=== PATIENT | female | born 1960 | race Caucasian/White ===

== ENCOUNTER → 2016-06-14 | Outpatient (CLI) | payer OTHER ==
[~2016-06-14] MED LIST: BUPR150T11 PO; CHOL10003 PO; ESTR1TAB15 PO; FLUT16SP NS; LEVO88TA2 PO; LORA10TA68 PO
--- NOTE | 2016-06-14 14:53 | RAD ---
Lateral lumbar spine-3 views, 06/14/2016: History: Spondylolisthesis Supine, upright flexion and upright extension views of the lumbar spine were obtained in the lateral projection as requested. The lumbar vertebral heights are well-maintained. There are mild scattered marginal spurs. There are sclerotic changes involving the facet joints in the lower lumbar spine. There is a mild spondylolisthesis consisting of a proximal a 4-5 mm of anterior subluxation of L4 relative to L5 in the supine position. A similar appearance is present in the upright view with extension. With upright flexion the spondylolisthesis increases slightly, measuring 6 to 7 mm. This limited exam is otherwise unremarkable. IMPRESSION: Mild spondylolisthesis at L4-5 as described above.
== END | disposition home or self-care (01) ==
LOC: RAD 14:13
PROVIDERS: ATTEND Neurological Surgery
DX: M43.16 Spondylolisthesis, lumbar region (principal)
CPT/HCPCS: 72100

== ENCOUNTER 2016-09-02 08:30 | Inpatient (IN) | payer OTHER ==
[~2016-09-02] VITALS: Ht 160 cm; Wt 68.0 kg
[2016-09-19] MEDS ORDERED: MELA3TAB2 PO (15:22)
[2016-09-19] MEDS ORDERED: IBUP-1027 PO (15:22)
[2016-09-19] MEDS ORDERED: ALPR0.254 PO (15:22)
[2016-09-19] MEDS ORDERED: ACET650T89 PO (15:22)
[2016-09-30] VITALS (10 sets, daily range): BP systolic 137–171; BP diastolic 84–104
[2016-09-30] MEDS ORDERED: BACITRACIN 50,000 UNIT in IV NORMAL SALINE 1000ML BAG 1,000 ML IRR ONE (06:00)
[2016-09-30] MEDS ORDERED: HYDROmorphone 2 MG/ML VIAL IV PRN ×2 (07:00→18:00)
[2016-09-30] MEDS ORDERED: ONDANSETRON PF 4 MG/2 ML VIAL. IV PRN ×2 (07:00→16:30)
[2016-09-30] MEDS ORDERED: LIDOCAINE 1% 1 ML SYRINGE. ID PRN (07:00)
[2016-09-30] MEDS ORDERED: MORPHINE SULFATE 2 MG/ML DISP.SYRIN. IV PRN (07:00)
[2016-09-30] MEDS ORDERED: IV RINGERS,LACTATED 1000ML 1,000 ML IV SCH (07:00)
[2016-09-30] MEDS ORDERED: PROCHLORPERAZINE 10 MG/2 ML VIAL. IV PRN (07:00)
[2016-09-30] MEDS ORDERED: fentaNYL PF VIAL 100 MCG/2 ML VIAL IV PRN (07:00)
[2016-09-30] MEDS ORDERED: BUPIVAC MPF-EPI 0.5%-1:200000 30 ML VIAL. ONE (08:10)
[2016-09-30] MEDS ORDERED: KETOROLAC 60 MG/2 ML INJ FOR OR. ONE (08:10)
[2016-09-30] MEDS ORDERED: GELATIN SPONGE SIZE 100. ONE (08:10)
[2016-09-30] MEDS ORDERED: THROMBIN TOPICAL 20,000 UNIT SPRAY.SYRN KIT TP ONE (08:10)
--- NOTE | 2016-09-30 08:38 | HP ---
ADMIT DATE: 09/30/2016 Keith Terrazas APRN dictating for Dr. Mars Ayoub. HISTORY OF PRESENT ILLNESS: The patient is a pleasant 55-year-old who has low back pain and burning which radiates into her right buttock and inguinal region and right leg. Over the last year, she has noted some discomfort which has been gradually increasing. The left side, which involves her left buttock, has a burning pain and also a pain in the left inguinal region and the left posterior lateral thigh. The problem started after heavy lifting. She states she is having more mild pain today after having been in bed a lot recently. Activities such as lifting or walking any distance exacerbate her pain. Rest helps. She takes extra strength Tylenol and ibuprofen. She has had epidural steroid injections x 3 as well as physical therapy, which has been giving her no lasting relief. Importantly, she reports an allergy specifically to titanium. PAST MEDICAL HISTORY: Headaches/migraines, thyroid disease, ulcers. PAST SURGICAL HISTORY: Hysterectomy, cholecystectomy, left meniscus repair, breast biopsy, carpal tunnel surgery. FAMILY HISTORY: Cancer. SOCIAL HISTORY: Retired welder helper. . Exercises daily. Quit smoking greater than 10 years ago. Drinks alcohol one to two times per month. ALLERGIES: TO HYDROCODONE, ERYTHROMYCIN, PREDNISONE, SULFA DRUGS, MACROBID, NICKEL, TITANIUM, COBALT, LATEX, CHLORHEXIDINE, STATINS, ADHESIVE BANDAGES AND BALSAM OF ERICK. CURRENT MEDICATIONS: Buproban, estradiol, Flonase, Xanax, Synthroid, acetaminophen and ibuprofen. REVIEW OF SYSTEMS: A 12-point review of systems was obtained and is noncontributory except for that mentioned above. PHYSICAL EXAMINATION: NEUROSURGERY EXAMINATION: GENERAL APPEARANCE: Alert, pleasant, in no acute distress. HEAD: Normocephalic and atraumatic. SKIN: Warm and dry. MUSCULOSKELETAL: Lumbar paraspinal muscle bulk is normal, restricted range of motion of lumbar spine, [id number] tenderness of lower lumbar spine with palpation, normal range of motion of the lower extremities bilaterally. EXTREMITIES: No clubbing, cyanosis or edema. NEUROLOGIC: Alert and oriented x 3, normal recent and remote memory, strength 5/5 in bilateral lower extremities, sensory was intact to light touch in the lower extremities bilaterally except for decrease in the anterolateral right leg, reflexes were trace and symmetric in bilateral lower extremities, positive straight leg with raising, back and buttock pain bilaterally, normal gait. IMAGING: Reviewed. I reviewed a lumbar myelogram and post-myelogram CT scan. On that study, there was a grade 1 anterolisthesis of L4-L5, which is about a 6 mm in extension and increases to 8 mm in flexion. There is severe bilateral foraminal stenosis related to the anterolisthesis, disk bulging and disk space narrowing along with facet arthropathy. There is associated bilateral L5 nerve root swelling. Additionally, there is prominent synovial cyst which is protruding into the canal from the left side at this level which is compressing and displacing the L5 nerve root on the left as well as the S1 root within the thecal sac. This measures about 1.3 cm in greatest diameter. ASSESSMENT: 1. Spondylolisthesis, lumbar region. 2. Radiculopathy, lumbar region. 3. Spinal stenosis, lumbar region. 4. Other bursal cyst, unspecified site. PLAN: She has spondylolisthesis of L4-L5 and L5 nerve root swelling bilaterally. There is moderately large synovial cyst on the left with compression of the left L5 nerve root as well as left S1 root. She has positive straight leg raising as well as numbness in her right anterolateral leg. At this point, I feel she should have a bilateral micro decompressive surgery to decompress nerve root on the right side as well as removal of synovial cyst on the left. She has a specific allergy to titanium which is rare. I would combine her surgery with ____ fusion without instrumentation. I discussed all this with her including the risks and the expected postoperative course. She understands. She would like to proceed. MARS AYOUB MD DR: ELISE/yasemin JOB#: [id number] / [id number]
[2016-09-30] MEDS ORDERED: PROPOFOL 100 ML IV ONE (12:05)
[2016-09-30] MEDS ORDERED: DESFLURANE > 120 MINUTES IH ONE (12:11)
[2016-09-30] MEDS ORDERED: PROPOFOL 20 ML IV ONE (12:12)
[2016-09-30] MEDS ORDERED: REMIFENTANIL 2 MG VIAL. IV ONE (12:12)
[2016-09-30] MEDS ORDERED: ROCURONIUM 50 MG/5 ML VIAL. ONE (12:12)
[2016-09-30] MEDS ORDERED: DEXAMETHASONE SOD PHOS 20 MG/5 ML VIAL. ONE (12:12)
[2016-09-30] MEDS ORDERED: MIDAZOLAM HCL/PF 2 MG/2 ML VIAL. ONE (12:12)
[2016-09-30] MEDS ORDERED: ONDANSETRON PF 4 MG/2 ML VIAL. ONE (12:12)
[2016-09-30] MEDS ORDERED: fentaNYL PF VIAL 100 MCG/2 ML VIAL ONE ×2 (12:12→14:21)
[2016-09-30] MEDS ORDERED: LIDOCAINE 2% PF Vial for OR 5 ML VIAL. ONE (12:12)
[2016-09-30] MEDS ORDERED: 0.9 % SODIUM CHLORIDE 50 ML VIAL. IJ ONE (12:14)
[2016-09-30] MEDS ORDERED: MINERAL OIL/PETROLATUM,WHITE OPHTH OINT 3.5GM TUBE. ONE (12:17)
[2016-09-30] MEDS ORDERED: GLYCOPYRROLATE 1 MG/5 ML VIAL. ONE (14:23)
[2016-09-30] MEDS ORDERED: KETAMINE HCL 500 MG/10 ML VIAL. ONE (14:46)
[2016-09-30] MEDS ORDERED: ZOLPIDEM 5 MG TABLET. PO PRN (16:30)
[2016-09-30] MEDS ORDERED: MAGNESIUM HYDROXIDE 2,400 MG/30 ML ORAL.SUSP. PO PRN (16:30)
[2016-09-30] MEDS ORDERED: MAG HYDROX/ALUMINUM HYD/SIMETH 30 ML ORAL.SUSP PO PRN (16:30)
[2016-09-30] MEDS ORDERED: diphenhydrAMINE 50 MG/ML VIAL IV PRN ×2 (16:30→18:00)
[2016-09-30] MEDS ORDERED: 0.9 % SODIUM CHLORIDE 10 ML DISP.SYRIN. IV PRN (16:30)
[2016-09-30] MEDS ORDERED: CALCIUM CARBONATE 500 MG TAB.CHEW PO PRN (16:30)
[2016-09-30] MEDS: fentaNYL PF VIAL 100 MCG/2 ML VIAL IV PRN ×6 (17:41→23:14)
[2016-09-30] MEDS: METHOCARBAMOL 750 MG TABLET PO SCH (20:43)
[2016-09-30] MEDS: DOCUSATE SODIUM 100 MG CAPSULE. PO SCH (20:43)
[2016-09-30] MEDS: buPROPion SR 150 MG TABLET.SA PO SCH (20:43)
[2016-09-30] MEDS: POTASSIUM CL 20MEQ D5-0.45NACL 1,000 ML IV SCH (20:45)
[2016-09-30] MEDS: ALPRAZolam 0.25 MG TABLET PO PRN (23:47)
[2016-10-01] MEDS: traMADol 50 MG TABLET PO PRN ×5 (00:51→21:42)
[2016-10-01] MEDS: fentaNYL PF VIAL 100 MCG/2 ML VIAL IV PRN ×5 (01:19→18:37)
[2016-10-01 03:15] VITALS: BP 129/90
[2016-10-01] MEDS: diphenhydrAMINE HCL 25 MG CAPSULE PO PRN ×2 (03:34→08:43)
[2016-10-01 06:20] VITALS: BP 111/70
[2016-10-01] MEDS: LEVOTHYROXINE 88 MCG TABLET PO SCH (07:12)
[2016-10-01] MEDS: ESTRADIOL 1 MG TABLET. PO SCH (08:13)
[2016-10-01] MEDS: METHOCARBAMOL 750 MG TABLET PO SCH ×3 (08:13→21:03)
[2016-10-01] MEDS: CHOLECALCIFEROL (VITAMIN D3) 1,000 UNIT TABLET PO SCH (08:13)
[2016-10-01] MEDS: buPROPion SR 150 MG TABLET.SA PO SCH ×2 (08:13→21:04)
[2016-10-01] MEDS: CETIRIZINE HCL 10 MG TABLET. PO SCH (08:14)
[2016-10-01] MEDS: POTASSIUM CL 20MEQ D5-0.45NACL 1,000 ML IV SCH ×2 (08:50→22:10)
[2016-10-01] MEDS: DOCUSATE SODIUM 100 MG CAPSULE. PO SCH ×2 (09:00→21:04)
[2016-10-01] MEDS: FLUTICASONE 50MCG/NASAL SPRAY 16GM BOTTLE. NS SCH (09:00)
--- NOTE | 2016-10-01 09:14 | ACF ---
Admission Forms Criteria PAIN MANAGEMENT [facility] Clinical Indications for Admission to Inpatient Care (Place 'X' for any and all applicable criteria): Hospital admission is needed for appropriate care of the patient because of 1 or more of the following are present (1)(2)(3)(4)(5): [ ]I. Severe pain requiring acute inpatient management as indicated by 1 or more of the following (2)(5)(10): [ ]a) Continuous or frequent (eg, every 2 to 4 hours) parenteral analgesics required [A] [ ]b) Necessity (ie, alternative approaches not effective) for analgesic regimen that can only be performed or initiated in inpatient setting [X]II. Pain causing debilitation to the point of inability to function or be supported at any other level of care [ ]III. Severe side effects from pain medications as indicated by ANY ONE of the following (12)(13)(14)(15): [ ]a) Uncontrollable seizures [ ]b) Cardiac arrhythmias of immediate concern [ ]c) Dehydration that is severe or persistent [ ]d) Vomiting that is severe or persistent [ ]e) Altered mental status that is severe or persistent [ ]f) Obstipation with inadequate GI function to maintain nutrition The original [employer] content created by [employer] has been revised. The portions of the content which have been revised are identified through the use of italic text or in bold, and [facility] [employer] [email or web address] has neither reviewed nor approved the modified material. All other unmodified content is copyright [employer]. Please see references footnoted in the original [employer] edition 2016 Admission Criteria Met?: Yes SAUMYA GREER Oct 01, 2016 09:14
[2016-10-01 09:51] VITALS: BP 113/67
--- NOTE | 2016-10-01 09:53 | PDOC ---
PROGRESS NOTES Subjective Subjective POD #1 S/P lumbar decompression L4-5 with removal of synovial cyst and in situ fusion back/ incisional pain c/o mild headache Objective Objective Vital Signs Date Time Temp Pulse Resp B/P (MAP) Pulse Ox O2 Delivery O2 Flow Rate FiO2 10/01/16 08:47 16 10/01/16 07:22 Room Air 10/01/16 06:27 99 10/01/16 06:20 99.1 97 111/70 (84) 99.1 09/30/16 17:41 10.0 Intake and Output 10/01/16 06:59 Intake Total 2475 ml Output Total 725 ml Balance 1750 ml Intake Oral 725 ml IV Total 1750 ml Output Urine Total 725 ml Physical Exam General: Alert, Oriented X3, Cooperative Neuro: Normal speech Psych/Mental Status: Mental status NL Skin: Other (dressing changed, some swelling noted, small amount of oozing noted on dressing) Plan Plan of Care encouraged increased activity as tolerated PT LSO ordered tramadol for pain, doesn't tolerate narcotics well Comment Review of Relevant I have reviewed the following items ani (where applicable) has been applied. Medications Current Medications Ondansetron HCl (Zofran) 4 mg PRN Q6HRS PRN IV NAUSEA/VOMITING; Start 09/30/16 at 07:00; Stop 09/30/16 at 18:00; Status DC Fentanyl Citrate (Fentanyl 2ml Vial) 25 mcg PRN Q5MIN PRN IV MILD PAIN; Start 09/30/16 at 07:00; Stop 09/30/16 at 18:00; Status DC Fentanyl Citrate (Fentanyl 2ml Vial) 50 mcg PRN Q5MIN PRN IV MODERATE PAIN Last administered on 09/30/16 18:02; Start 09/30/16 at 07:00; Stop 09/30/16 at 18:00; Status DC Morphine Sulfate 1 mg PRN Q10MIN PRN IV SEVERE PAIN; Start 09/30/16 at 07:00; Stop 09/30/16 at 07:00; Status DC Ringer's Solution 1,000 ml @ 30 mls/hr Q24H IV Last administered on 09/30/16 11:40; Start 09/30/16 at 07:00; Stop 09/30/16 at 18:59; Status DC Lidocaine HCl 2 ml PRN 1X PRN ID PRIOR TO IV START; Start 09/30/16 at 07:00; Stop 09/30/16 at 18:00; Status DC Hydromorphone HCl (Dilaudid) 0.5 mg PRN Q10MIN PRN IV SEV PAIN, Second choice; Start 09/30/16 at 07:00; Stop 09/30/16 at 07:00; Status DC Prochlorperazine Edisylate (Compazine) 5 mg PACU PRN PRN IV NAUSEA, MRX1; Start 09/30/16 at 07:00; Stop 09/30/16 at 18:00; Status DC Bacitracin 63138 unit/Sodium Chloride 1,000 ml @ 1,000 mls/hr 1X PERIOP ONCE IRR Last administered on 09/30/16 14:44; Start 09/30/16 at 06:00; Stop at 06:59; Status DC Cefazolin Sodium/ Dextrose 50 ml @ 100 mls/hr 1X PREOP PRN IV PRIOR TO PROCEDURE Last administered on 09/30/16 14:31; Start 09/30/16 at 06:00; Stop at 18:00; Status DC Bupivacaine HCl/ Epinephrine Bitart (Sensorcain-Mpf Epi 0.5%-1:[id number]) 30 ml STK -MED ONCE .ROUTE Last administered on 09/30/16 14:44; Start 09/30/16 at 08:10 ; Stop 09/30/16 at 08:11; Status DC Gelatin (Gelfoam Size 100) 1 each STK-MED ONCE .ROUTE Last administered on 14:44; Start 09/30/16 at 08:10; Stop 09/30/16 at 08:11; Status DC Ketorolac Tromethamine (Toradol For Or Only) 60 mg STK-MED ONCE .ROUTE Last administered on 09/30/16 14:44; Start 09/30/16 at 08:10; Stop 09/30/16 at 08:11 ; Status DC Thrombin 20,000 unit STK-MED ONCE TP Last administered on 09/30/16 14:44; Start 09/30/16 at 08:10; Stop 09/30/16 at 08:11; Status DC Propofol 100 ml @ As Directed STK-MED ONCE IV ; Start 09/30/16 at 12:05; Stop 09/30/16 at 12:06; Status DC Desflurane (Suprane) 90 ml STK-MED ONCE IH ; Start 09/30/16 at 12:11; Stop 09/30 at 12:12; Status DC Midazolam HCl (Versed) 2 mg STK-MED ONCE .ROUTE ; Start 09/30/16 at 12:12; Stop 09/30/16 at 12:13; Status DC Fentanyl Citrate (Fentanyl 2ml Vial) 100 mcg STK-MED ONCE .ROUTE ; Start at 12:12; Stop 09/30/16 at 12:13; Status DC Remifentanil HCl (Ultiva) 2 mg STK-MED ONCE IV ; Start 09/30/16 at 12:12; Stop 09/30/16 at 12:13; Status DC Rocuronium [place] (Zemuron) 50 mg STK-MED ONCE .ROUTE ; Start 09/30/16 at 12:12 ; Stop 09/30/16 at 12:13; Status DC Propofol 20 ml @ As Directed STK-MED ONCE IV ; Start 09/30/16 at 12:12; Stop 04/06 at 12:13; Status DC Lidocaine HCl (Lidocaine Pf 2% Vial) 5 ml STK-MED ONCE .ROUTE ; Start 09/30/16 at 12:12; Stop 09/30/16 at 12:13; Status DC Dexamethasone Sodium Phosphate (Decadron) 20 mg STK-MED ONCE .ROUTE ; Start 04/06 at 12:12; Stop 09/30/16 at 12:13; Status DC Ondansetron HCl (Zofran) 4 mg STK-MED ONCE .ROUTE ; Start 09/30/16 at 12:12; Stop 09/30/16 at 12:13; Status DC Sodium Chloride (Sodium Chloride) 50 ml STK-MED ONCE IJ ; Start 09/30/16 at 12: 14; Stop 09/30/16 at 12:15; Status DC Multi-Ingred Cream/Lotion/Oil/ Oint (Artificial Tears Eye Oint) 7 iam STK-MED ONCE .ROUTE ; Start 09/30/16 at 12:17; Stop 09/30/16 at 12:18; Status DC Fentanyl Citrate (Fentanyl 2ml Vial) 100 mcg STK-MED ONCE .ROUTE ; Start at 14:21; Stop 09/30/16 at 14:22; Status DC Glycopyrrolate (Robinul) 1 mg STK-MED ONCE .ROUTE ; Start 09/30/16 at 14:23; Stop 09/30/16 at 14:24; Status DC Ketamine HCl 500 mg STK-MED ONCE .ROUTE ; Start 09/30/16 at 14:46; Stop at 14:47; Status DC Alprazolam (Xanax) 0.25 mg PRN Q6HRS PRN PO ANXIETY / AGITATION Last administered on 09/30/16 23:47; Start 09/30/16 at 16:30 Bupropion HCl (Wellbutrin Sr) 150 mg BID PO Last administered on 10/01/16 08: 13; Start 09/30/16 at 21:00 Vitamin D (Vitamin D3) 1,000 unit DAILY PO Last administered on 10/01/16 08:13 ; Start 10/01/16 at 09:00 Estradiol (Estrace) 1 mg DAILY PO Last administered on 10/01/16 08:13; Start 10/01/16 at 09:00 Fluticasone Propionate (Flonase) 2 spray DAILY NS ; Start 10/01/16 at 09:00 Levothyroxine Sodium (Synthroid) 88 mcg DAILYAC PO Last administered on 07:12; Start 10/01/16 at 07:30 Cetirizine HCl (ZyrTEC) 10 mg DAILY PO Last administered on 10/01/16 08:14; Start 10/01/16 at 09:00 Acetaminophen (Tylenol) 650 mg PRN Q6HRS PRN PO MILD PAIN / TEMP; Start at 16:30 Al Hydroxide/Mg Hydroxide (Mylanta Plus Xs) 30 ml PRN Q3HRS PRN PO HEARTBURN / GAS; Start 09/30/16 at 16:30 Calcium Carbonate/ Glycine (Tums) 500 mg PRN Q3HRS PRN PO INDIGESTION; Start at 16:30 Diphenhydramine HCl (Benadryl) 25 mg PRN Q6HRS PRN PO ITCHING Last administered on 10/01/16 08:43; Start 09/30/16 at 16:30 Diphenhydramine HCl (Benadryl) 25 mg PRN Q6HRS PRN IV ITCHING; Start 09/30/16 at 16:30 Zolpidem Tartrate (Ambien) 5 mg PRN QHS PRN PO INSOMNIA, MAY REPEAT IN 1HR; Start 09/30/16 at 16:30 Sodium Chloride (Normal Saline Flush) 3 ml QSHIFT PRN IV AFTER MEDS AND BLOOD DRAWS; Start 09/30/16 at 16:30 Potassium Chloride/Dextrose/ Sod Cl 1,000 ml @ 75 mls/hr [id number] IV Last administered on 09/30/16 20:45; Start 09/30/16 at 19:30 Methocarbamol (Robaxin) 750 mg TID PO Last administered on 10/01/16 08:13; Start 09/30/16 at 21:00 Docusate Sodium (Colace) 100 mg BID PO Last administered on 09/30/16 20:43; Start 09/30/16 at 21:00 Magnesium Hydroxide (Milk Of Magnesia) 2,400 mg PRN Q12HR PRN PO CONSTIPATION; Start 09/30/16 at 16:30 Ondansetron HCl (Zofran) 4 mg PRN Q6HRS PRN IV NAUESA, 1ST CHOICE; Start at 16:30 Fentanyl Citrate (Fentanyl 2ml Vial) 50 mcg PRN Q2HR PRN IV PAIN Last administered on 10/01/16 08:20; Start 09/30/16 at 16:30 Hydromorphone HCl (Dilaudid) 0.5 mg PRN Q10MIN PRN IV Moderate to severe pain; Start 09/30/16 at 18:00; Stop 10/01/16 at 17:59; Status UNV Diphenhydramine HCl (Benadryl) 12.5 mg PRN Q2HR PRN IV ITCHING; Start 09/30/16 at 18:00; Stop 10/01/16 at 17:59 Tramadol HCl (Ultram) 50 mg PRN Q6HRS PRN PO PAIN Last administered on 06:27; Start 09/30/16 at 20:15 Tramadol HCl (Ultram) 100 mg PRN Q6HRS PRN PO PAIN; Start 09/30/16 at 20:15 Active Scripts Active Reported Melatonin 3 Mg Tablet 10 Mg PO Alprazolam 0.25 Mg Tablet 0.25 Mg PO PRN Q6HRS PRN Arthritis Pain (Acetaminophen) 650 Mg Tablet.er 1,300 Mg PO Ibuprofen 400 Mg Tablet 400 Mg PO PRN Q6HRS PRN Fluticasone Propionate Nasal [place] (Fluticasone Propionate) 16 Gm [place].susp 2 [place] NS DAILY Vitamin D3 (Cholecalciferol (Vitamin D3)) 1,000 Unit Tablet 1 Tab PO DAILY Claritin (Loratadine) 10 Mg Tablet 10 Mg PO DAILY Bupropion Hcl Sr (Bupropion Hcl) 150 Mg Tablet.er 150 Mg PO BID Synthroid (Levothyroxine Sodium) 88 Mcg Tablet 88 Mcg PO DAILYAC Estradiol 1 Mg Tablet 1 Tab PO DAILY Vitals/I & O Vital Sign - Last 24 Hours 09/30/16 09/30/16 09/30/16 09/30/16 11:21 11:40 17:24 17:24 Temp 98.0 98.0 Pulse 81 108 Resp 16 16 B/P (MAP) 154/87 149/100 Pulse Ox 98 100 O2 Delivery Room Air Room Air Mask Simple Mask O2 Flow Rate 10 10 09/30/16 09/30/16 09/30/16 09/30/16 17:39 17:41 17:52 17:54 Pulse 90 98 Resp 20 18 18 20 B/P (MAP) 177/103 149/82 Pulse Ox 100 100 100 99 O2 Delivery Simple Mask Simple Mask Room Air Room Air O2 Flow Rate 10 10.0 09/30/16 09/30/16 09/30/16 09/30/16 18:02 18:10 18:25 18:38 Pulse 104 88 Resp 18 18 18 18 B/P (MAP) 152/96 142/84 Pulse Ox 95 99 98 98 O2 Delivery Room Air Room Air Room Air Room Air 09/30/16 09/30/16 09/30/16 09/30/16 19:00 19:15 19:30 19:45 Temp 97.6 97.6 Pulse 70 79 94 90 Resp 20 20 22 20 B/P (MAP) 155/95 (115) 139/84 (102) 166/95 (118) 166/104 (124) Pulse Ox 100 97 98 99 O2 Delivery Nasal Cannula Room Air Room Air Room Air 09/30/16 09/30/16 09/30/16 09/30/16 20:00 20:00 20:30 21:00 Temp 98.2 98.2 Pulse 69 69 Resp 20 20 20 B/P (MAP) 171/100 (123) 149/99 (116) Pulse Ox 99 100 99 O2 Delivery Room Air Mask Room Air Room Air 09/30/16 09/30/16 09/30/16 09/30/16 21:00 21:30 22:00 23:00 Temp 97.7 97.7 Pulse 88 74 100 79 Resp 20 20 20 20 B/P (MAP) 151/96 (114) 155/96 (115) 148/94 (112) 137/85 (102) Pulse Ox 99 98 100 98 O2 Delivery Room Air Room Air Room Air Room Air 09/30/16 10/01/16 10/01/16 10/01/16 23:14 00:51 01:19 01:50 Resp 20 22 20 Pulse Ox 97 98 99 97 O2 Delivery Room Air Room Air Room Air Room Air 10/01/16 10/01/16 10/01/16 10/01/16 03:15 03:35 04:15 06:20 Temp 98.6 99.1 98.6 99.1 Pulse 93 97 Resp 20 20 20 B/P (MAP) 129/90 (103) 111/70 (84) Pulse Ox 99 98 97 99 O2 Delivery Room Air Room Air Room Air Room Air 10/01/16 10/01/16 10/01/16 10/01/16 06:27 07:22 07:30 08:20 Resp 20 18 16 Pulse Ox 99 O2 Delivery Room Air Room Air 10/01/16 08:47 Resp 16 Intake and Output 09/30/16 09/30/16 10/01/16 14:59 22:59 06:59 Intake Total 1850 ml 625 ml Output Total 0 ml 725 ml Balance 1850 ml -100 ml DAMIAN TOLBERT VAMP SEAMER Oct 01, 2016 09:53
[2016-10-01] MEDS: ACETAMINOPHEN 325 MG TABLET. PO PRN ×3 (09:57→21:04)
[2016-10-01 15:39] VITALS: BP 128/76
[2016-10-01 18:10] VITALS: BP 117/77
[2016-10-01] MEDS: ALPRAZolam 0.25 MG TABLET PO PRN (21:42)
[2016-10-01 22:55] VITALS: BP 98/55
[2016-10-02] MEDS: fentaNYL PF VIAL 100 MCG/2 ML VIAL IV PRN (02:04)
[2016-10-02] MEDS: ACETAMINOPHEN 325 MG TABLET. PO PRN ×3 (02:35→13:50)
[2016-10-02 02:53] VITALS: BP 124/77
[2016-10-02] MEDS: traMADol 50 MG TABLET PO PRN ×2 (06:03→11:44)
[2016-10-02] MEDS: LEVOTHYROXINE 88 MCG TABLET PO SCH (06:03)
[2016-10-02 06:17] VITALS: BP 135/80
[2016-10-02] MEDS: FLUTICASONE 50MCG/NASAL SPRAY 16GM BOTTLE. NS SCH (09:00)
[2016-10-02] MEDS: CETIRIZINE HCL 10 MG TABLET. PO SCH (09:00)
[2016-10-02] MEDS: buPROPion SR 150 MG TABLET.SA PO SCH (09:00)
[2016-10-02] MEDS: ESTRADIOL 1 MG TABLET. PO SCH (09:00)
[2016-10-02] MEDS: DOCUSATE SODIUM 100 MG CAPSULE. PO SCH (09:00)
[2016-10-02] MEDS: CHOLECALCIFEROL (VITAMIN D3) 1,000 UNIT TABLET PO SCH (09:00)
[2016-10-02] MEDS: METHOCARBAMOL 750 MG TABLET PO SCH ×2 (09:03→13:49)
[2016-10-02 11:00] VITALS: BP 131/63
--- NOTE | 2016-10-02 14:15 | DISCH ---
DISCHARGE INSTRUCTIONS Condition on Discharge Condition on Discharge: Stable Activity After Discharge Activity Instructions for Disc: Avoid exertion Bathing Instructions: Shower-keep dressing dry Lifting Instructions after Dis: No heavy lifting, No pulling or pushing, Do not lift >10 pounds Driving Instructions after Dis: No driving for 2 weeks Diet after Discharge Additional Diet Restrictions: resume home diet Wound Incision Care Wound/Incision Care: Ice to area for comfort Other wound/incision instructi: may remove dressing in 48 hrs if dry then may shower- no soaking Contacting the after DC Call your doctor for: Concerns you may have Follow-Up Follow up with: Dr. Ayoub's nurse in 2 weeks [phone] MARCO AYOUB MD Oct 02, 2016 14:15
[2016-10-02] MEDS ORDERED: METH750T2 PO (14:16)
[2016-10-02] MEDS ORDERED: DOCU-109 PO (14:16)
[2016-10-02] MEDS ORDERED: TRAM50TA PO (14:16)
--- NOTE | 2016-10-02 15:28 | PATHOLOGY ---
PATHOLOGY REPORT * * * * * * * * FINAL DIAGNOSIS: A. Segments of fibrocartilaginous, fibroadipose, and skeletal muscle tissue and bone, lumbar decompression: - Degenerative changes of fibrocartilaginous tissue with focal fibrosis and pigmented macrophages. B. Segments of fibrocartilaginous tissue and bone, designated, "synovial cyst": - Degenerative changes of fibrocartilaginous tissue with synovial cyst and with focal reactive fibrosis and pigmented macrophages. COMMENT: There is no evidence of an acute inflammatory process or malignancy. (JPM:mm; d/t: 10/02/2016) REPORT ELECTRONICALLY SIGNED BY: Mike Bolanos M.D. DATE/TIME: 10/02/2016 15:27 * * * * * * * * GROSS PATHOLOGY: A. Received in formalin labeled "Nora Schilling, lumbar decompression" are multiple segments of ho, rubbery, and gritty tissue admixed with bone. The specimen measures 3.5 x 2.7 x 0.8 cm in aggregate dimensions. The tissue is submitted representatively in cassette A1, following decalcification. B. Received in formalin labeled "synovial cyst" are multiple segments of ho, rubbery, and gritty tissue. The specimen measures 2.5 x 2.0 x 0.8 cm in aggregate dimensions. The tissue is submitted entirely in cassette B1, following decalcification. (JPM; 10/01/16) INITIAL CPT CODE(S): A; 70590, 63939 B; 02450, 86353 Professional services performed [place] [facility] [place] [address] Technical services performed by [facility] at [address] [place] [address] [address], [place] [address]. SPECIMEN(S) RECEIVED: A.Lumbar decompression B.Synovial cyst CLINICAL HISTORY: Synovial cyst, stenosis, radiculopathy, spondylolisthesis PATIENT: NORA SCHILLING /AGE: 8 1960 (Age: 55) PATIENT #: [id number] ALT CASE #: SPECIMEN COLLECTION DATE: 09/30/2016 SPECIMEN RECEIVED DATE: 10/01/2016 [facility] - [address] [place] [address] - PHONE: [phone] * * * END OF REPORT * * *
--- NOTE | 2016-10-02 21:37 | OP ---
DATE OF SURGERY: 09/30/2016 PREOPERATIVE DIAGNOSES: Spondylolisthesis and spinal stenosis with large synovial cyst, L4-L5. POSTOPERATIVE DIAGNOSES: Spondylolisthesis and spinal stenosis with large synovial cyst, L4-L5. OPERATION PERFORMED: 1. Lumbar laminectomy L4-L5 with resection of synovial cyst. 2. Posterolateral fusion L4-L5 with allograft and autograft bone. The operation was done with EMG monitoring, fluoroscopy and microscopic dissection. SURGEON: Mars Ayoub M.D. PRODUCTION TROUBLESHOOTER: Tommy Steele M.D., assisted with the surgery, assisted with the exposure, the laminectomy, removal of synovial cyst as well as the closure. OPERATIVE INDICATIONS: The patient is a very pleasant 55-year-old who developed intractable back and leg pain and was found to have a very large synovial cyst with spinal stenosis and nerve root compression. I recommended lumbar laminectomy to remove the synovial cyst and decompress the dura and nerve roots and because of her spondylolisthesis, I further recommended posterior lateral fusion for her. She has severe allergy to metals including titanium and no mental construct I felt could be safely placed and therefore, I felt that this was the most prudent treatment course. I discussed this with her and her in detail. They understood the surgery and the risks to technique involved and wished to go ahead. DESCRIPTION OF PROCEDURE: Following general endotracheal anesthesia, the patient was positioned prone on the [facility] spine board. The lumbar region was prepped and draped in standard fashion. JORDYN hose and AV impulse boots were applied for DVT prophylaxis. The microscope was draped. Fluoroscopy was draped and brought into field. Monitoring was established. Ancef 2 grams was given less than 1 hour prior to initiation of the surgery. Using fluoroscopic guidance, an incision was made over the L4-L5 interspace. I dissected down through the skin and subcutaneous tissue and reflected the paraspinal muscles and placed self-retaining retractor. I brought in the microscope and using the high speed air drill, I drilled a very generous laminectomy undercutting the spinous process and working circumferentially superiorly and inferiorly, which carried my laminectomy all the way down over the S1 to fully surround and decompress the synovial cyst. I then began the laborious process of peeling the cyst off of the dura. I cut away the superficial and mid portion of the cyst to decompress the dura, but left a small layer of cyst wall in contact with the dura and that they were intermittently scarred together. As I worked from superiorly and inferiorly peeling this material away, the dura began to move back to a much more normal position. I fully decompressed the nerve roots and removed the cyst. I then irrigated it copiously. I felt that I had an excellent decompression. At this point, then I worked laterally and exposed the lateral facets and then the transverse processes. I excoriated these regions well. I placed a needle into the iliac crest and aspirated 20 mL of bone marrow. I then placed the bone marrow into allograft bone. I mixed the autograft bone that I kept from the laminectomy and packed this into first the left lateral gutter and then the right lateral gutter, again after excoriating on the right hand side as well. At this point, then I irrigated copiously with antibiotic solution. I closed the wound in layers with absorbable suture and the skin was closed with a 4-0 subcuticular stitch. The operation, I felt, went very well and the patient was awakened uneventfully, taken to recovery room in excellent condition. I was quite pleased with the surgery. MARS AYOUB MD DR: ELISE/yasemin JOB#: [id number] / [id number] SPIKE
== END 2016-10-02 14:45 | disposition home or self-care (01) | DRG 460 ==
LOC: OPSVCIP 09-30 10:43 → 4 SOUTHEST 09-30 18:58
PROVIDERS: ADMIT Neurological Surgery; ATTEND Neurological Surgery
PROC: 0SG0071 Fusion of Lumbar Vertebral Joint with Autologous Tissue Substitute, Posterior Approach, Posterior Column, Open Approach (ICD-10-PCS; 2016-09-30)
PROC: 0SB20ZZ Excision of Lumbar Vertebral Disc, Open Approach (ICD-10-PCS; 2016-09-30)
PROC: 4A11X4G Monitoring of Peripheral Nervous Electrical Activity, Intraoperative, External Approach (ICD-10-PCS; 2016-09-30)
PROC: 07DR3ZZ Extraction of Iliac Bone Marrow, Percutaneous Approach (ICD-10-PCS; 2016-09-30)
PROC: 01NB0ZZ Release Lumbar Nerve, Open Approach (ICD-10-PCS; principal; 2016-09-30 13:30)
DX: M43.16 Spondylolisthesis, lumbar region (principal); M54.16 Radiculopathy, lumbar region; M48.06 Spinal stenosis, lumbar region; M71.30 Other bursal cyst, unspecified site; G43.909 Migraine, unspecified, not intractable, without status migrainosus; F41.9 Anxiety disorder, unspecified; E07.9 Disorder of thyroid, unspecified; Z90.49 Acquired absence of other specified parts of digestive tract; Z90.710 Acquired absence of both cervix and uterus; Z80.8 Family history of malignant neoplasm of other organs or systems; Z88.1 Allergy status to other antibiotic agents; Z91.040 Latex allergy status; Z88.8 Allergy status to other drugs, medicaments and biological substances; Z91.048 Other nonmedicinal substance allergy status; Z91.09 Other allergy status, other than to drugs and biological substances; Z87.891 Personal history of nicotine dependence
CPT/HCPCS: 76000; 88304; 88311; C1713; J0690; J1100; J1885; J2250; J2405; J2704; J3010; J3490; J7030; J7120; Q0163; 97110; 97116; 97530

== ENCOUNTER → 2016-09-24 | Outpatient (CLI) | payer OTHER ==
--- NOTE | 2016-09-23 15:41 | EKG ---
[facility] [address] [place] [address] Test Date: 2016-09-23 Test Time: 15:35:19 Pat Name: VANDANA JAFFE Department: Room: Gender: F Dedicated Owner Operator: : [id number] Requested By: MARCO AYOUB Order Number: [id number] Reading MD: Agnes Devlin Measurements Intervals [place] Rate: 80 P: 51 AL: 126 QRS: 46 QRSD: 80 T: 21 QT: 392 QTc: 456 Interpretive Statements SINUS RHYTHM QRS(T) CONTOUR ABNORMALITY CONSISTENT WITH ANTEROSEPTAL INFARCT AGE UNDETERMINED ABNORMAL ECG RI6.01 No previous ECG available for comparison Electronically Signed On 09-26-2016 12:37:30 CDT by Agnes Devlin
[~2016-09-24] MED LIST changes: +ACET650T89 PO; +ALPR0.254 PO; +IBUP-1027 PO; +MELA3TAB PO
== END | disposition home or self-care (01) ==
LOC: SURGPAT 08:48
PROVIDERS: ATTEND Neurological Surgery
DX: Z01.818 Encounter for other preprocedural examination (principal); M43.16 Spondylolisthesis, lumbar region; M48.06 Spinal stenosis, lumbar region; M54.16 Radiculopathy, lumbar region; M71.30 Other bursal cyst, unspecified site
CPT/HCPCS: 87641; 93005